=== PATIENT | male | born 1975 | race Caucasian/White ===

== ENCOUNTER 2021-05-03 19:51 | Emergency (ER) | payer BC ==
[~2021-05-03] VITALS: Ht 180.3 cm; Wt 109.1 kg
[2021-05-03 19:56] VITALS: Ht 180.3 cm; Wt 109.1 kg
[2021-05-03] MEDS ORDERED: LISINOPRIL10 MG PO (20:13)
[2021-05-03] MEDS ORDERED: BAYER CHEWABLE81 MG PO (20:13)
[2021-05-03] MEDS ORDERED: LOPRESSOR25 MG PO (20:13)
[2021-05-03] MEDS ORDERED: VALTREX500 MG PO (20:14)
[2021-05-03] MEDS ORDERED: AUGMENTIN 875-11 TAB PO (20:25)
[2021-05-03] MEDS ORDERED: CORTISPORIN OTI10 M1 LEFT EAR (20:25)
[2021-05-03 20:45] VITALS: BP 132/78
== END 2021-05-03 20:45 | disposition home or self-care (01) ==
LOC: D.ER 19:51
DX: H66.012 Acute suppurative otitis media with spontaneous rupture of ear drum, left ear (principal)